=== PATIENT | female | born 1965 | race Caucasian/White ===

== ENCOUNTER 2021-01-01 02:08 | Observation (INO) | payer OTHER ==
[2021-01-01 02:17] VITALS: BMI 31.2
[2021-01-01] MEDS ORDERED: levETIRAcetam 500 MG TABLET (FP) PO ONE ×3 (02:23→09:50)
[2021-01-01] MEDS ORDERED: lamoTRIgine 25 MG TABLET PO ONE (03:09)
[2021-01-01] MEDS ORDERED: lamoTRIgine 25 MG TABLET ONE ×2 (03:13→09:54)
[2021-01-01 03:58] LABS: BASO % 0.4 % (0-2.0); EOS % 3.5 % (0-4.5); HEMATOCRIT 35.4 % (32.4-45.2); HEMOGLOBIN 12.1 GM/dL (10.7-15.3); LYMPH % 12.4 % (8-40); MCH 30.9 pg (25.7-33.7); MCHC 34.2 g/dl (32.0-36.0); MEAN CELL VOLUME 90.1 fl (80-96); MEAN PLT VOLUME 8.1 fl (7.5-11.1); NEUT % 77.7 % (42.8-82.8); PLATELET COUNT 255 10^3/uL (134-434); RBC 3.93 M/mm3 (3.60-5.2); WHITE BLOOD COUNT 10.6 K/mm3 (4.0-10.0)
[2021-01-01 04:09] LABS: METHADONE, UR NEGATIVE (NEGATIVE)
[2021-01-01 04:10] LABS: PHENCYCLIDINE,URINE NEGATIVE (NEGATIVE); URINE BENZODIAZEPINES NEGATIVE (NEGATIVE)
[2021-01-01 04:12] LABS: URINE APPEARANCE CLEAR; URINE BILIRUBIN NEGATIVE (NEGATIVE); URINE COLOR YELLOW; URINE GLUCOSE (UA) NEGATIVE (NEGATIVE); URINE KETONE NEGATIVE (NEGATIVE); URINE LEUK ESTERASE NEGATIVE (NEGATIVE); URINE NITRITE NEGATIVE (NEGATIVE); URINE PROTEIN NEGATIVE (NEGATIVE); URINE UROBILINOGEN 0.2 mg/dL (0.2-1.0)
[2021-01-01 04:15] LABS: COCAINE, UR NEGATIVE (NEGATIVE); HCG,QUALITATIVE URINE Negative; OPIATES, URI NEGATIVE (NEGATIVE); URINE AMPHETAMINES NEGATIVE (NEGATIVE); URINE BARBITURATES NEGATIVE (NEGATIVE)
[2021-01-01 04:20] LABS: CHLORIDE 102 mmol/L (98-107); SODIUM 136 mmol/L (136-145)
[2021-01-01 04:22] LABS: ALBUMIN 3.6 g/dl (3.4-5.0); ANION GAP 8 MMOL/L (8-16); BLOOD UREA NITROGEN 17.1 mg/dL (7-18); CALCIUM 8.2 mg/dL (8.5-10.1); CO2 25 mmol/L (21-32)
[2021-01-01 04:24] LABS: GLUCOSE,RANDOM 129 mg/dL (74-106)
[2021-01-01 04:27] LABS: BILIRUBIN,TOTAL 0.4 mg/dL (0.2-1); CREATININE 0.7 mg/dL (0.55-1.3); SGOT/AST 26 U/L (15-37); SGPT/ALT 32 U/L (13-61); TOT PROT 7.9 g/dl (6.4-8.2)
[2021-01-01 04:28] LABS: ALK PHOS 117 U/L (45-117)
[2021-01-01] MEDS ORDERED: HEPARIN NA (PORCINE) 5,000 UNITS/ML 1ML VIAL ONE (09:49)
[2021-01-01] MEDS ORDERED: levETIRAcetam 500 MG TABLET (FP) PO SCH (10:00)
[2021-01-01] MEDS: lamoTRIgine 25 MG TABLET PO SCH (10:02)
[2021-01-01] MEDS: HEPARIN NA (PORCINE) 5,000 UNITS/ML 1ML VIAL SQ SCH (10:02)
[2021-01-01] MEDS ORDERED: LORazepam 2 MG/ML SDV VIAL IVPUSH PRN (10:10)
[2021-01-01] MEDS: ASPIRIN 81 MG CHEWABLE TABLETS PO SCH (10:35)
[2021-01-01] MEDS ORDERED: ASPIRIN 81 MG CHEWABLE TABLETS ONE (12:10)
[2021-01-02 06:03] LABS: BASO % 0.3 % (0-2.0); EOS % 6.9 % (0-4.5); HEMATOCRIT 35.7 % (32.4-45.2); HEMOGLOBIN 12.4 GM/dL (10.7-15.3); LYMPH % 25.8 % (8-40); MCH 31.7 pg (25.7-33.7); MCHC 34.8 g/dl (32.0-36.0); MEAN PLT VOLUME 8.3 fl (7.5-11.1); MONO % 9.2 % (3.8-10.2); NEUT % 57.8 % (42.8-82.8); PLATELET COUNT 271 10^3/uL (134-434); RBC 3.92 M/mm3 (3.60-5.2); RDW 13.2 % (11.6-15.6); WHITE BLOOD COUNT 7.3 K/mm3 (4.0-10.0)
[2021-01-02 06:27] LABS: ALBUMIN 3.3 g/dl (3.4-5.0); CALCIUM 8.3 mg/dL (8.5-10.1)
[2021-01-02 06:30] LABS: CREATININE 0.6 mg/dL (0.55-1.3)
[2021-01-02 06:32] LABS: BILIRUBIN,TOTAL 1.2 mg/dL (0.2-1); TOT PROT 7.4 g/dl (6.4-8.2)
[2021-01-02] MEDS ORDERED: ASPIRIN 81 MG CHEWABLE TABLETS ONE (08:55)
[2021-01-02] MEDS ORDERED: levETIRAcetam 500 MG TABLET (FP) PO ONE ×2 (08:55→23:03)
[2021-01-02] MEDS ORDERED: lamoTRIgine 25 MG TABLET ONE ×2 (08:56→23:03)
[2021-01-02] MEDS ORDERED: HEPARIN NA (PORCINE) 5,000 UNITS/ML 1ML VIAL ONE ×2 (08:56→23:03)
[2021-01-02] MEDS: levETIRAcetam 500 MG TABLET (FP) PO SCH ×3 (09:08→23:10)
[2021-01-02] MEDS: HEPARIN NA (PORCINE) 5,000 UNITS/ML 1ML VIAL SQ SCH ×3 (09:08→23:10)
[2021-01-02] MEDS: lamoTRIgine 25 MG TABLET PO SCH ×3 (09:08→23:10)
[2021-01-02] MEDS: ASPIRIN 81 MG CHEWABLE TABLETS PO SCH (09:09)
[2021-01-03 07:52] LABS: HEMATOCRIT 35.1 % (32.4-45.2); HEMOGLOBIN 12.3 GM/dL (10.7-15.3); MCH 31.8 pg (25.7-33.7); MEAN CELL VOLUME 90.8 fl (80-96); MEAN PLT VOLUME 9.1 fl (7.5-11.1); PLATELET COUNT 262 10^3/uL (134-434); RBC 3.86 M/mm3 (3.60-5.2); RDW 12.7 % (11.6-15.6); WHITE BLOOD COUNT 6.6 K/mm3 (4.0-10.0)
[2021-01-03 08:02] LABS: CHLORIDE 107 mmol/L (98-107); SODIUM 138 mmol/L (136-145)
[2021-01-03 08:06] LABS: ANION GAP 6 MMOL/L (8-16); CO2 25 mmol/L (21-32); GLUCOSE,RANDOM 88 mg/dL (74-106)
[2021-01-03 08:08] LABS: CHOLESTEROL 184 mg/dL (50-200); CREATININE 0.6 mg/dL (0.55-1.3)
[2021-01-03 08:09] LABS: LDL CHOLESTEROL (ONLY SJRH) 115 mg/dL (5-100); TRIGLYCERIDES 115 mg/dL (0-150)
[2021-01-03 08:11] LABS: HDL CHOLESTEROL 48 mg/dL (40-60)
[2021-01-03] MEDS ORDERED: levETIRAcetam 500 MG TABLET (FP) PO ONE (09:18)
[2021-01-03] MEDS ORDERED: ASPIRIN 81 MG CHEWABLE TABLETS ONE (09:18)
[2021-01-03] MEDS ORDERED: HEPARIN NA (PORCINE) 5,000 UNITS/ML 1ML VIAL ONE (09:19)
[2021-01-03] MEDS ORDERED: lamoTRIgine 25 MG TABLET ONE (09:19)
[2021-01-03] MEDS: ASPIRIN 81 MG CHEWABLE TABLETS PO SCH (09:45)
[2021-01-03] MEDS: lamoTRIgine 25 MG TABLET PO SCH (09:45)
[2021-01-03] MEDS: levETIRAcetam 500 MG TABLET (FP) PO SCH (09:45)
[2021-01-03] MEDS: HEPARIN NA (PORCINE) 5,000 UNITS/ML 1ML VIAL SQ SCH (09:45)
[2021-01-03 16:05] VITALS: BP 123/67; PULSE 67; TEMP 98.8
== END 2021-01-03 19:46 | disposition home or self-care (01) ==
LOC: JER 02:08 → JERBED 03:14 → UNDOADMOB 03:14 → INTOOBSV 03:14 → JERBED 01-02 10:29 → J4W 01-03 14:53
PROVIDERS: ADMIT Internal Medicine; ATTEND Internal Medicine
PROC: 3E023GC Introduction of Other Therapeutic Substance into Muscle, Percutaneous Approach (ICD-10-PCS; principal; 2021-01-02)
DX: G40.919 Epilepsy, unspecified, intractable, without status epilepticus (principal); Z91.14 Patient's other noncompliance with medication regimen; R74.8 Abnormal levels of other serum enzymes; Z11.52 Encounter for screening for COVID-19; S01.552A Open bite of oral cavity, initial encounter; W50.3XXA Accidental bite by another person, initial encounter; Y93.89 Activity, other specified; Y92.89 Other specified places as the place of occurrence of the external cause; E66.8 Other obesity; Z68.31 Body mass index [BMI] 31.0-31.9, adult; Z29.9 Encounter for prophylactic measures, unspecified
CPT/HCPCS: 36415; 70450-TC; 71045-TC-FY; 80048; 80053; 80061; 80175; 80177; 80307; 81003; 82550; 82553; 82962; 83036; 84443; 84484; 84703; 85025; 85027; 87086; 93005; 93010; 93306-TC; 93351; 96372; 99285-25; C9803; G0378; J1644; U0003; U0005